=== PATIENT | male | born 1955 | race Caucasian/White ===

== ENCOUNTER 2018-11-23 01:03 | Observation (INO) ==
[2018-11-23] MEDS ORDERED: Naloxone 0.4 MG/ML INJ IVP PRN (04:08)
[2018-11-23 05:18] LABS: Basophils % 0.4 %; Hematocrit 25.6 % (37.5-50.1); Monocytes % 6.6 %
[2018-11-23 05:20] LABS: Eosinophils # 0.1 K/mcL (0.0-0.6); Eosinophils % 1.8 %; Hemoglobin 7.4 g/dL (12.9-16.9); Immature Granulocytes % 0.3 % (0-4); Lymphocytes # 2.2 K/mcL (0.6-4.6); Lymphocytes % 32.9 %; Mean Corpuscular HGB Conc 28.9 g/dL (31.6-35.5); Mean Corpuscular Hemoglobin 22.8 pg (28.0-33.3); Mean Platelet Volume 11.4 fL (9.4-12.4); Monocytes # 0.5 K/mcL (0.0-1.3); Neutrophils # 3.9 K/mcL (1.6-8.9); Platelet Count 229 K/mcL (140-400); Red Blood Count 3.24 M/mcL (4.19-5.50); Red Cell Distribution Width 15.8 % (11.5-14.5); White Blood Count 6.8 K/mcL (4.3-11.1)
[2018-11-23 05:24] LABS: INR 1.1; Prothrombin Time 12.3 Seconds (9.4-12.1)
[2018-11-23 05:27] LABS: Activated Partial Thrombo Time 24.2 Seconds (26.0-36.0)
[2018-11-23 05:37] LABS: Alanine Aminotransferase 8 Units/L (7-52); Albumin 3.7 g/dL (3.5-5.7); Albumin/Globulin Ratio 1.4 (1.1-2.2); Alkaline Phosphatase 63 Units/L (34-104); Aspartate Amino Transferase 18 Units/L (13-39); BUN/Creatinine Ratio 16 (6-26); Bilirubin,Total 0.4 mg/dL (0.3-1.0); Blood Urea Nitrogen 17 mg/dL (8-23); Calcium 8.8 mg/dL (8.6-10.3); Carbon Dioxide 27 mEq/L (23-29); Chloride 104 mEq/L (98-107); Globulin 2.7 g/dL (2.4-3.5); Glucose 115 mg/dL (70-105); Osmolality,Calculated 296 (280-300); Potassium 3.4 mEq/L (3.5-5.1); Sodium 142 mEq/L (136-145); Total Protein 6.4 g/dL (6.4-8.9); eGFR For African Americans > 60 (> 60); eGFR For Non-African Americans > 60 (> 60)
[2018-11-23 05:42] LABS: Platelet Estimate Normal (Normal)
[2018-11-23] MEDS: Pantoprazole 40 MG VIAL IVP SCH ×2 (06:05→18:42)
[2018-11-23] MEDS ORDERED: 0.9 % Sodium Chloride 250 ML ONE (06:23)
--- NOTE | 2018-11-23 07:47 | Internal Med History&Physical ---
Date of Encounter: 11/23/18 Time of Encounter: 07:25 Internal Medicine - H&P: HPI History of present illness: Mr. Pierre is a 62 year old with history of PUD in 1990s, HPL, HTN, hypothyroidism, presents as a transfer from [facility] due to anemia. Some information is limited as ED physician note was not sent over. Per patient, she was at her doctor doing a regular checkup. They noticed her blood levels were low and called patient to go to ED. She does have chronic dark tarry stools, chronic constipation and chronic nausea. She denies dizziness, SOB, CP, Vomiting, abdominal pain, diarrhea. She takes aspirin at home. ECG showed NSR with artifact. Creatinine was 1.17, with no baseline labs available. Hemoglobin was low at 6.6 with no baseline available for comparison. Initial troponin was negative, chest x-ray unremarkable. Blood pressure and heart rate were within acceptable limits 145/83 and 80 bpm respectively. INR was 1.1. FOBT was positive. She was being transfused one unit PRBC en route to [facility]. Family history reviewed and non-contributory. Past Med Surg Social Fam HX - Past Medical History Medical history: diabetes, hypertension, thyroid disease Additional medical history: hypothyroidism, Psychiatric history: anxiety, depression - Past Surgical History Surgical History: cholecystectomy Additional surgical history: 3 c-sections, 9 D & Cs, a hysterectomy - Social History Smoking Status: Never smoker Smokeless Tobacco Status: No Alcohol use: none Drug use: none - Family History Mother Name: Padmini Simon Living Status: Age at : 65 Cause of : non hodgkins lymphoma Hx Family Cardiac Disorders: No Hx Family Respiratory Disorders: No Hx Family Cancer: Yes Hx Family GI Disorders: No Hx Family Genitourinary Disorders: No Hx Family Endocrine Disorder: No Hx Family Musculoskeletal Disorders: No Hx Family Neuromuscular Disorders: No Hx Family Neurologic Disorders: No Hx Family HEENT Disorders: No Hx Family Autoimmune Disorders: No Hx Family Reproductive Disorders: No Hx Family Psychosocial Disorders: No Hx Family Medical Disorders: No Father Name: Kushal Bo Living Status: Age at : 65 Cause of : Stroke Hx Family Cardiac Disorders: No Hx Family Respiratory Disorders: No Hx Family Cancer: No Hx Family GI Disorders: No Hx Family Genitourinary Disorders: No Hx Family Endocrine Disorder: No Hx Family Musculoskeletal Disorders: No Hx Family Neuromuscular Disorders: No Hx Family Neurologic Disorders: (Stroke) Hx Family HEENT Disorders: No Hx Family Autoimmune Disorders: No Hx Family Reproductive Disorders: No Hx Family Psychosocial Disorders: No Hx Family Medical Disorders: No Internal Medicine - H&P: Meds Aspirin 81 mg PO DAILY 11/23/18 [History] Omeprazole [PriLOSEC] 40 mg PO DAILY 11/23/18 [History] 3 Allergy/AdvReac Type Severity Reaction Status Date / Time Iodinated Contrast- Oral and Allergy Difficulty Verified 11/23/18 04:26 IV Dye Breathing iodine Allergy Difficulty Verified 11/23/18 04:26 Breathing Pineapple Allergy Swelling Verified 11/23/18 04:26 of Lip/Tongue/Throat Sulfa (Sulfonamide Allergy Hives Verified 11/23/18 04:26 Antibiotics) All Systems PM: A 10-system review of systems was performed and is negative for pertinent findings except as documented above in the HPI. - Constitutional Constitutional: no chills, no fever(s), no night sweats - EENT Eyes: no change in vision, no discharge, no pain, no photophobia Ears: no ear discharge, no ear pain, no tinnitus Nose, mouth and throat: no dysphagia, no nasal discharge, no neck pain, no sore throat - Cardiovascular Cardiovascular ROS IM: no chest pain, no diaphoresis, no dyspnea, no lighth eadedness, no palpitations, no syncope - Respiratory Respiratory: no cough, no dyspnea, no wheezing, no excessive phlegm production - Gastrointestinal Gastrointestinal: melena, nausea, no abdominal pain, no diarrhea, no he matemesis, no hematochezia, no vomiting - Musculoskeletal Musculoskeletal ROS IM: no numbness, no tingling - Integumentary Integumentary IM: no rash, no unusual bruising - Neurological Neurological ROS: no confusion, no convulsions, no focal weakness, no numbness, no tingling, no tremor(s) - Hematologic/Lymphatic Hematologic/Lymphatic: no easy bruising - Constitutional Vitals: Temp Pulse Resp BP Pulse Ox 98.2 F 74 16 137/78 97 11/23/18 06:58 11/23/18 06:58 11/23/18 06:58 11/23/18 06:58 11/23/18 03:08 General appearance: Present: A&O X 3, no acute distress Exam: . - Head Head exam: Present: atraumatic, normocephalic - Eye Eye exam: Present: PERRL, conjuntiva pink, sclera anicteric Pupils: Present: PERRL - Neck Neck exam general surgery: Present: supple, trachea midline. Absent: lymphadenopathy - Respiratory Respiratory exam: Present: CTAB. Absent: accessory muscle use, rales, rhonchi, wheezes - Cardiovascular Cardiovascular exam: Present: RRR, +S1, +S2. Absent: diastolic murmur, gallop, rubs, systolic murmur - GI/Abdominal GI/Abdominal exam: Present: normal bowel sounds, soft, no peritoneal signs. Absent: distended, tenderness - Extremities Exam Extremities exam: Present: pedal edema (non-pitting), warm, radial pulses palpable and symmetrical. Absent: calf tenderness, cyanotic - Neurological Exam Neurological exam: Present: CN II-XII intact, oriented X3, no focal deficits. Absent: pronater drift, facial droop, speech deficit - Skin Skin exam: Present: dry, intact Internal Med - H&P Results - Labs CBC & Chem 7: 11/23/18 04:59 11/23/18 04:59 Labs: Short CBC 11/23/18 Range/Units 04:59 WBC 6.8 (4.3-11.1) K/mcL Hgb 7.4 L (12.9-16.9) g/dL Hct 25.6 L (37.5-50.1) % Plt Count 229 (140-400) K/mcL Neutrophils # 3.9 (1.6-8.9) K/mcL BMP 11/23/18 04:59 Sodium 142 Potassium 3.4 L Chloride 104 Carbon Dioxide 27 BUN 17 Creatinine 1.09 Glucose 115 H Calcium 8.8 Liver Function 11/23/18 Range/Units 04:59 Total Bilirubin 0.4 (0.3-1.0) mg/dL AST 18 (13-39) Units/L ALT 8 (7-52) Units/L Alkaline Phosphatase 63 (34-104) Units/L Albumin 3.7 (3.5-5.7) g/dL - Assessment and Plan (1) Upper GI bleed Current Visit: Yes Status: Acute Assessment and plan: Patient has history of PUD several years ago presenting with black tarry stools with anemia of 6.8 from [facility]. Likely UGIB. Hemodynamically stable. - Continue PRBC tranfusion, patient finishing second unit. May need a dose of Lasix in between transfusion, will reassess fluid status afterwords. - IV Protonix BID - GI consulted, - NPO for now. (2) Hypertension Current Visit: Yes Status: Acute Assessment and plan: Resume home medications once med rec complete. Qualifiers: Hypertension type: essential hypertension Qualified Code(s): I10 - Essential (primary) hypertension (3) Hyperlipidemia Current Visit: Yes Status: Acute Assessment and plan: statin Hold aspirin Qualifiers: Hyperlipidemia type: unspecified Qualified Code(s): E78.5 - Hyperlipidemia, unspecified (4) Hypothyroid Current Visit: Yes Status: Acute Assessment and plan: Resume Synthroid Qualifiers: Hypothyroidism type: unspecified Qualified Code(s): E03.9 - Hypothyroidism, unspecified (5) History of peptic ulcer Current Visit: Yes Status: Acute Assessment and plan: Plan as above. (6) DVT prophylaxis Current Visit: Yes Status: Acute Assessment and plan: EPCD - Time Spent With Patient Total time spent is greater than 50% in coordination of care (as documented) at patient's floor/unit and/or counseling patient:
[2018-11-23] MEDS ORDERED: *HR* Dextrose 50 % in Water (Syg) 50 ML SYRINGE IVP PRN (07:57)
[2018-11-23] MEDS ORDERED: D5% in Water 1,000 ML IVC PRN (07:57)
[2018-11-23] MEDS ORDERED: Dextrose Gel 15 GM/37.5 ML TUBE PO PRN ×2 (07:57)
[2018-11-23] MEDS ORDERED: *HR* Propofol 200 MG/20 ML VIAL IVP ONE (11:25)
[2018-11-23] MEDS ORDERED: Lidocaine -MPF 2% 2 ML VIAL ONE (11:25)
--- NOTE | 2018-11-23 12:14 | Gastroenterology Consult Note ---
<Atul Hernández Thee - Last Filed: 11/23/18 12:19> Date of Encounter: 11/23/18 Time of Encounter: 10:25 - Assessment and plan (1) Anemia Status: Acute Assessment and plan: Likely secondary to upper GI bleed. Hgb 7.4 on admission and one unit PRBC transfused. Continue to monitor CBC and transfuse PRBC as needed. Plan for EGD today to r/o esophagitis, gastritis, duodenitis, PUD, MW tear, or AVM. Keep NPO for scope. Qualifiers: Anemia type: unspecified type Qualified Code(s): D64.9 - Anemia, unspecified (2) Melena Status: Acute Assessment and plan: Hgb 7.4 on admission here. One unit PRBC transfused here and one unit transfused on transfer from [facility]. Continue BID PPI. Plan for EGD today to r/o esophagitis, gastritis, duodenitis, PUD, MW tear, or AVM. Keep NPO for scope. (3) GERD (gastroesophageal reflux disease) Status: Acute Assessment and plan: Patient on PPI at home which is not controlling her symptoms. Continue BID PPI. Plan for EGD today to r/o esophagitis, gastritis, duodenitis, PUD, MW tear, or AVM. Keep NPO for scope. Patient educated regarding lifestyle modifications including: (1) avoidance of foods that may precipitate reflux (eg, coffee, alcohol, chocolate, fatty foods). (2) avoidance of acidic foods that may precipitate heartburn (eg, citrus, carbonated drinks, spicy foods). (3) adoption of behaviors that may reduce esophageal acid exposure (see weight loss, smoking cessation, raising the head of the bed, and avoiding recumbency for 2-3 hours after meals). Qualifiers: Esophagitis presence: esophagitis presence not specified Qualified Code(s): K21.9 - Gastro-esophageal reflux disease without esophagitis (4) Nausea Status: Acute Assessment and plan: Likely secondary to uncontrolled GERD. Continue PPI. - Time Spent With Patient Total time spent is greater than 50% in coordination of care (as documented) at patient's floor/unit and/or counseling patient: GI History of Present Illness - Data of Consult Patient: new to practice Consult date: 11/23/18 Requesting Physician: Harlan Perez MD - Consult Narrative Reason for consult: Melena History of present illness: Mr. Pierre is a 62 year old male with PMHx of PUD in , GERD, DM, HTN, was transferred from [facility] due to anemia. She presented to the ED at [facility] at the request of her PCP due to anemia. She reports having black, tarry stools for the past month. She also reports constipation and nausea. She denies vomiting. She denies fever, chills, chest pain, SOB, abdominal pain, hematochezia. She is taki ng omeprazole at home which is not controlling her refulx symptoms well. She was transferred here for further evaluation. She received one unit PRBC on transfer. Hgb on admission here was 7.4. Procedures: None NSAIDs: ASA Anticoagulation: None Past Med Surg Social Fam HX - Past Medical History Medical history: diabetes, hypertension, thyroid disease Additional medical history: hypothyroidism, Psychiatric history: anxiety, depression - Past Surgical History Surgical History: cholecystectomy Additional surgical history: 3 c-sections, 9 D & Cs, a hysterectomy - Social History Smoking Status: Never smoker Smokeless Tobacco Status: No Alcohol use: none Drug use: none - Family History Mother Name: Padmini Simon Living Status: Age at : 65 Cause of : non hodgkins lymphoma Hx Family Cardiac Disorders: No Hx Family Respiratory Disorders: No Hx Family Cancer: Yes Hx Family GI Disorders: No Hx Family Genitourinary Disorders: No Hx Family Endocrine Disorder: No Hx Family Musculoskeletal Disorders: No Hx Family Neuromuscular Disorders: No Hx Family Neurologic Disorders: No Hx Family HEENT Disorders: No Hx Family Autoimmune Disorders: No Hx Family Reproductive Disorders: No Hx Family Psychosocial Disorders: No Hx Family Medical Disorders: No Father Name: Kushal Bo Living Status: Age at : 65 Cause of : Stroke Hx Family Cardiac Disorders: No Hx Family Respiratory Disorders: No Hx Family Cancer: No Hx Family GI Disorders: No Hx Family Genitourinary Disorders: No Hx Family Endocrine Disorder: No Hx Family Musculoskeletal Disorders: No Hx Family Neuromuscular Disorders: No Hx Family Neurologic Disorders: (Stroke) Hx Family HEENT Disorders: No Hx Family Autoimmune Disorders: No Hx Family Reproductive Disorders: No Hx Family Psychosocial Disorders: No Hx Family Medical Disorders: No - Gastrointestinal Gastrointestinal: Present: as per HPI - Constitutional Constitutional: as per HPI - EENT Eyes: as per HPI Ears: Present: as per HPI Nose, mouth and throat: Present: as per HPI - Respiratory Respiratory IM: Present: as per HPI - Genitourinary Genitourinary: Absent: change in color, Urinary frequency - Neurological ROS Neurological GI: Present: as per HPI - Hematologic/Lymphatic Hematologic/Lymphatic pediatric: Present: as per HPI - Musculoskeletal Musculoskeletal ROS GI: Present: as per HPI - Integumentary Integumentary GI: Present: as per HPI - Psychiatric ROS Psychiatric GI: Present: as per HPI - Endocrine Endocrine IM: Present: as per HPI - Constitutional Vitals: Temp Pulse Resp BP Pulse Ox 98.2 F 97 14 139/84 97 11/23/18 11:41 11/23/18 11:41 11/23/18 11:41 11/23/18 11:41 11/23/18 03:08 General appearance: Present: cooperative, A&O X 3, no acute distress, answers questions appropriately - Head Head exam: Present: atraumatic, normocephalic - Eye Eye exam: Present: normal appearance, sclera anicteric - ENT ENT exam: Present: mucous membranes moist - Neck Neck exam general surgery: Present: normal inspection, trachea midline - Respiratory Respiratory exam: Present: decreased breath sounds, CTAB. Absent: rales, rhonchi - Cardiovascular Cardiovascular exam: Present: RRR, +S1, +S2 - GI/Abdominal GI/Abdominal exam: Present: soft, no peritoneal signs. Absent: distended, firm, guarding, tenderness - Rectal Rectal exam: Present: deferred - Extremities Exam Extremities exam: Present: warm - Neurological Exam Neurological exam: Present: no focal deficits - Psychiatric Psychiatric exam: Present: normal affect, normal mood - Skin Skin exam: Present: dry, intact, normal color, warm Results - Labs CBC & Chem 7: 11/23/18 04:59 11/23/18 04:59 Labs: Last Result 11/23/18 04:59 Calcium 8.8 Entire Visit 11/23/18 11/23/18 11/23/18 04:59 04:59 04:59 Hgb 7.4 L Hct 25.6 L PT 12.3 H Total Bilirubin 0.4 AST 18 ALT 8 - ABG ABG results: PT/INR, D-dimer PT 12.3 Seconds (9.4-12.1) H 11/23/18 04:59 Consult Discharge Plan - Plan Instructions: Potassium Chloride (By mouth), Omeprazole (By mouth), Potassium Supplement (By mouth), Omeprazole/Sodium Bicarbonate (By mouth), Hypothyroidism (DC), Chronic Hypertension (DC), Anemia (GEN) Referrals: Kyler Ramirez DO [Primary Care Provider] - 12/05/18 9:45 am (physician will need to make a referal for a GI appointment ) Prescriptions: Potassium Chloride 20 meq PO DAILY #30 tab.er.prt Omeprazole [PriLOSEC] 40 mg PO BID #60 capsule.dr <Jose Carlson - Last Filed: 12/04/18 03:44> Date of Encounter: 12/04/18 - Time Spent With Patient Total time spent is greater than 50% in coordination of care (as documented) at patient's floor/unit and/or counseling patient: GI History of Present Illness - Data of Consult Requesting Physician: Harlan Perez MD - Consult Narrative History of present illness: Mr. Pierre is a 63 year old male - Constitutional Vitals: Temp Pulse Resp BP Pulse Ox 98.5 F 78 16 147/78 96 11/24/18 07:32 11/24/18 07:32 11/24/18 07:32 11/24/18 07:32 11/24/18 07:32 Results - Labs CBC & Chem 7: 11/24/18 05:14 11/24/18 05:14 - ABG ABG results: PT/INR, D-dimer PT 12.3 Seconds (9.4-12.1) H 11/23/18 04:59 - Attending Attestation Mr. Pierre is a 62 year old female with PMHx of PUD in , GERD, DM, HTN, was transferred from [facility] due to anemia. Agree with endoscopy and transfusion as needed. Further recommendations post endoscopy. I examined this patient and my medical decision-making was reviewed with the Resident Physician. I agree with the documented findings, disposition and treatment plan as described except to the extent set forth below.
--- NOTE | 2018-11-23 12:29 | Anesthesia Evaluation PreOp ---
Date of Encounter: 11/23/18 Time of Encounter: 12:45 - Past History Planned Operation: EGD Cardiac History: HTN, Hyperlipidemia [employer] History: Other (anxiety, depression) Other Medical History: Diabetes Type II, Thyroid, Other (admitted with anemia, Hgb 6.6. Received pRBCs, today's Hgb 7.4) Anesthesia History: No Prior Anesthetic Complications Alcohol Use: none Drug use: none Medications and Allergies Aspirin 81 mg PO DAILY 11/23/18 [History] Omeprazole [PriLOSEC] 40 mg PO DAILY 11/23/18 [History] Allergy/AdvReac Type Severity Reaction Status Date / Time Iodinated Contrast- Oral and Allergy Difficulty Verified 11/23/18 04:26 IV Dye Breathing iodine Allergy Difficulty Verified 11/23/18 04:26 Breathing Pineapple Allergy Swelling Verified 11/23/18 04:26 of Lip/Tongue/Throat Sulfa (Sulfonamide Allergy Hives Verified 11/23/18 04:26 Antibiotics) - Meds/Allergy Pre-op Review Medications Reviewed: Yes Allergies Reviewed: Yes Beta Blockers on Current Med List: No Anesthesia Results - Labs 11/23/18 04:59 11/23/18 04:59 Anesthesia Exam Selected Entries 11/23/18 06:58 11/23/18 11:41 Temperature 98.2 F Pulse Rate 74 Respiratory Rate 14 Blood Pressure 139/84 Weight: 96 kg NPO (# of Hours): over 8 hours - HEENT Teeth: Edentulous Oral Opening: Greater than 3 - [employer] LOC: Oriented [employer] Motor: Normal RUE, Normal LUE (tremor of hands) - Cardiac Rhythm: Regular Murmur: None - Pulmonary Breath Sounds: bilateral Clear Anesthesia Assess/Plan ASA Score: 2 Level of consciousness: Cooperative Anesthetic Plan: MAC Monitoring Plan: Standard Monitors Recovery Plan: Other (Discussed MAC anesthesia, agreed to proceed.)
[2018-11-23 14:50] LABS: Hematocrit 28.5 % (37.5-50.1); Hemoglobin 8.7 g/dL (12.9-16.9)
[2018-11-23] MEDS ORDERED: Acetaminophen 325 MG TABLET PO ONE (22:59)
[2018-11-24 06:15] LABS: Basophils % 0.3 %; Eosinophils # 0.1 K/mcL (0.0-0.6); Eosinophils % 1.5 %; Hematocrit 29.9 % (37.5-50.1); Hemoglobin 8.8 g/dL (12.9-16.9); Immature Granulocytes % 0.3 % (0-4); Lymphocytes # 2.5 K/mcL (0.6-4.6); Lymphocytes % 35.1 %; Mean Corpuscular HGB Conc 29.4 g/dL (31.6-35.5); Mean Corpuscular Hemoglobin 23.3 pg (28.0-33.3); Mean Corpuscular Volume 79.3 fL (83.0-100.0); Mean Platelet Volume 11.5 fL (9.4-12.4); Monocytes # 0.4 K/mcL (0.0-1.3); Neutrophils # 4.1 K/mcL (1.6-8.9); Platelet Count 219 K/mcL (140-400); Red Blood Count 3.77 M/mcL (4.19-5.50); Red Cell Distribution Width 16.3 % (11.5-14.5); Segmented Neutrophils % 56.8 %; White Blood Count 7.2 K/mcL (4.3-11.1)
[2018-11-24] MEDS: Pantoprazole 40 MG VIAL IVP SCH (06:31)
[2018-11-24 06:32] LABS: BUN/Creatinine Ratio 17 (6-26); Blood Urea Nitrogen 16 mg/dL (8-23); Calcium 9.1 mg/dL (8.6-10.3); Carbon Dioxide 27 mEq/L (23-29); Chloride 105 mEq/L (98-107); Glucose 90 mg/dL (70-105); Osmolality,Calculated 295 (280-300); Potassium 3.2 mEq/L (3.5-5.1); Sodium 142 mEq/L (136-145); eGFR For African Americans > 60 (> 60); eGFR For Non-African Americans > 60 (> 60)
[2018-11-24 07:43] VITALS: BP 147/78
--- NOTE | 2018-11-24 12:02 | Discharge Summary ---
Date of Encounter: 11/24/18 Time of Encounter: 11:57 - Discharge Diagnosis (1) Upper GI bleed Priority: Primary Status: Acute (2) History of peptic ulcer Priority: Secondary Status: Acute (3) Hypertension Priority: Secondary Status: Acute Qualifiers: Hypertension type: essential hypertension Qualified Code(s): I10 - Essential (primary) hypertension (4) Hyperlipidemia Priority: Secondary Status: Acute Qualifiers: Hyperlipidemia type: unspecified Qualified Code(s): E78.5 - Hyperlipidemia, unspecified (5) Hypothyroid Priority: Secondary Status: Acute Qualifiers: Hypothyroidism type: unspecified Qualified Code(s): E03.9 - Hypothyroidism, unspecified Hospital course: Mr. Pierre is a 62 year old male with history of PUD on daily 40 mg omeprazole and daily aspirin use for primary prevention presents with melena and anemia and found to have esophageal varices and gastritis on EGD. Patient has no known history of liver disease and denies alcohol use. Recommended patient workup for new onset liver disease, however, patient insisted on leaving the hospital in having this workup done outpatient. She will follow-up with her primary care provider to get referred to a master carpenter to have this workup completed. Hemoglobin is stable upon discharge and patient will follow-up next week with PCP for repeat CBC. She will be discharged on omeprazole twice per day. We also discontinued aspirin given aspirin for primary prevention has no known benefit and is a risk in this patient given history of PUD. Discharge discussed with: patient - Discharge Medications Prescriptions: New Potassium Chloride 20 meq PO DAILY #30 tab.er.prt Continued Propranolol HCl 60 mg PO BID Levothyroxine Sodium 75 mcg PO QAM Citalopram Hydrobromide [Citalopram HBr] 40 mg PO DAILY Cetirizine HCl 10 mg PO DAILY Amitriptyline [Elavil] 50 mg PO HS Simvastatin [Zocor] 40 mg PO DAILY Losartan Potassium 100 mg PO DAILY Lactobacillus Acidophilus [Acidophilus] 1 tab PO DAILY Changed Omeprazole [PriLOSEC] 40 mg PO BID #60 capsule.dr Discontinued Aspirin 81 mg PO DAILY Potassium Chloride [Klor-Con 10] 10 meq PO DAILY Home Medications: Amitriptyline [Elavil] 50 mg PO HS 11/23/18 [History] Cetirizine HCl 10 mg PO DAILY 11/23/18 [History] Citalopram Hydrobromide [Citalopram HBr] 40 mg PO DAILY 11/23/18 [History] Lactobacillus Acidophilus [Acidophilus] 1 tab PO DAILY 11/23/18 [History] Levothyroxine Sodium 75 mcg PO QAM 11/23/18 [History] Losartan Potassium 100 mg PO DAILY 11/23/18 [History] Propranolol HCl 60 mg PO BID 11/23/18 [History] Simvastatin [Zocor] 40 mg PO DAILY 11/23/18 [History] Omeprazole [PriLOSEC] 40 mg PO BID #60 capsule.dr 11/24/18 [Rx] Potassium Chloride 20 meq PO DAILY #30 tab.er.prt 11/24/18 [Rx] Allergies/Adverse Reactions: Allergy/AdvReac Type Severity Reaction Status Date / Time Iodinated Contrast- Oral and Allergy Difficulty Verified 11/23/18 04:26 IV Dye Breathing iodine Allergy Difficulty Verified 11/23/18 04:26 Breathing Pineapple Allergy Swelling Verified 11/23/18 04:26 of Lip/Tongue/Throat Sulfa (Sulfonamide Allergy Hives Verified 11/23/18 04:26 Antibiotics) Date of admission: 11/23/18 02:53 Primary care physician: Kyler Ramirez Consults: 11/23/18 06:33 Consult to Gastroenterology [CONS] Routine Consulting Provider: Gastroenterology Eliane Reason for Consult: Active black tarry stool with hemoglobin of 6.6 sent from [facility] Call Completed: No - Constitutional Vitals: Temp Pulse Resp BP Pulse Ox 98.5 F 78 16 147/78 96 11/24/18 07:32 11/24/18 07:32 11/24/18 07:32 11/24/18 07:32 11/24/18 07:32 General appearance: Present: A&O X 3, no acute distress Exam: General: Ill-appearing and in no acute distress HEENT: No erythema of posterior pharynx. No exudates. Lymphatics: No mandibular or cervical lymphadenopathy Cardiovascular: RRR. No murmurs. No chest wall tenderness. Lungs: Clear to auscelltation bilaterally. Regular chest rise. Abdomen: Non-tender. No rebound or gaurding. Nl bowel sounds. Extremities: No edema. 2+ pulses radial and pedal pulses Skin: No rahses, abrasions, or contusions. Nl cap refill. Psych: Nl attention. A&Ox3 Neuro: spanish moss picker II-XII intact. 5/5 strength. Sensation to light touch and pinprick intact. . - Patient Status Disposition: Home, Self-Care Condition: Good Functional capacity at discharge: independent ambulation Overall status at discharge: patient is back to baseline - Discharge Instructions Follow Up With: Kyler Ramirez DO [Primary Care Provider] - - Diet and Activity Activity: increase activity as tolerated Diet: low salt diet
== END 2018-11-24 17:36 | disposition home or self-care (01) ==
LOC: 2NENU
PROVIDERS: ADMIT Internal Medicine; ATTEND Internal Medicine

== ENCOUNTER 2019-12-11 09:59 | Observation (INO) ==
[2019-12-11] MEDS ORDERED: *HR* Propofol 200 MG/20 ML VIAL IVP ONE (10:56)
[2019-12-11] MEDS ORDERED: Lidocaine -MPF 2% 2 ML VIAL ONE (10:56)
[2019-12-11] MEDS ORDERED: 0.9 % Sodium Chloride 1,000 ML IVC SCH ×2 (11:15→13:47)
[2019-12-11] MEDS ORDERED: Naloxone 0.4 MG/ML INJ IVP PRN (13:47)
[2019-12-11] MEDS ORDERED: Ondansetron 4 MG/2 ML VIAL IVP PRN (13:47)
[2019-12-12] MEDS ORDERED: hydroCHLOROthiazide 25 MG TABLET PO SCH (09:00)
[2019-12-12 15:06] VITALS: BP 168/77
[2019-12-12] MEDS ORDERED: Lidocaine -MPF 2% 2 ML VIAL ONE (15:11)
[2019-12-12] MEDS ORDERED: *HR* Propofol 200 MG/20 ML VIAL IVP ONE ×2 (15:11→15:13)
== END 2019-12-12 18:49 | disposition home or self-care (01) ==
LOC: 3ANU 09:59 → ENDPAV 09:59 → 3ANU 13:33
PROVIDERS: ADMIT Surgery; ATTEND Surgery